=== PATIENT | female | born 1990 | race Caucasian/White ===

== ENCOUNTER 2019-05-21 01:36 | Observation (INO) | payer BC, OTHER ==
--- OUTSIDE RECORDS SUMMARY | 2019-05-21 01:39 | XMS REPORT ---
:1990 [facility] [address] [place] [address] Care Team Providers Name Role Phone Unavailable Unavailable Unavailable Problems This patient has no known problems. Allergies, Adverse Reactions, Alerts This patient has no known allergies or adverse reactions. Medications This patient has no known medications. Results Test Description Test Time Test Comments Text Results Atomic Results Result Comments US PELVIC complete CLINICAL INDICATION: R10.2 PELVIC AND (TRANSABDOMINAL) PERINEAL PAINTECHNIQUE:Real-time and doppler transabdominal ultrasound evaluation of the pelvis was performed on the Oonair.FINDINGS:Uterus: Measured 9.7 x 7 x 4.4 cm. No discrete uterine mass is seen.Endometrial stripe:8 mm.Right ovary: 2.8 x 2.3 cm appeared unremarkable.Left Ovary: 2.4 x 2.3 cm appeared unremarkable.Adnexa: Unremarkable. Bladder appeared unremarkable.IMPRESSION:Essentially unremarkable transabdominal ultrasound of the pelvis.
[2019-05-21 02:22] LABS: Urine Blood NEGATIVE (NEG); Urine Glucose NEGATIVE (NEG); Urine Protein NEGATIVE (NEG); Urine Specific Gravity >1.030 (1.005-1.030); Urine pH 6.5 (5.0-7.0)
[2019-05-21] MEDS ORDERED: ONDANSETRON 4 MG (ODT) TAB ONE (02:30)
[2019-05-21] MEDS ORDERED: KETOROLAC 30 MG/ML INJ ONE ×2 (02:30→14:57)
[2019-05-21 02:44] LABS: Urine Bacteria <20 /HPF (<20); Urine RBC <5 /HPF (NONE SEEN)
[2019-05-21] MEDS ORDERED: CEFOXITIN/SWI 1gm 1 GM/10 ML SYR ONE (02:53)
[2019-05-21] MEDS ORDERED: NA CHLORIDE 0.9% 1,000 ML ONE (02:53)
[2019-05-21] MEDS ORDERED: NA CHLORIDE 0.9% 100 ML IV ONE (02:53)
[2019-05-21] MEDS ORDERED: FENTANYL CITR 100 MCG/2 ML ONE ×2 (03:12→13:41)
[2019-05-21 03:41] LABS: ALT/SGPT 13 U/L (12-78); AST/SGOT 11 U/L (15-37); Albumin 3.6 g/dL (3.4-5.0); Alkaline Phosphatase 49 U/L (45-117); BUN Blood Urea Nitrogen 13 mg/dL (7-18); Bicarbonate 27 mmol/L (21-32); Bilirubin Direct < 0.1 mg/dL (0-0.2); Bilirubin Total 0.3 mg/dL (0.2-1.0); Glucose Level 78 mg/dL (74-106); Lipase 92 U/L (73-393); Potassium 3.9 mmol/L (3.5-5.1); Protein, Total 6.5 g/dL (6.4-8.2); Sodium Level 140 mmol/L (136-145)
[2019-05-21 03:54] LABS: Absolute Lymphocytes (CBC) 2.9 K/uL (0.7-4.9); Basophils % 0.9 % (0-1.3); Hematocrit 38.4 % (36.0-45.0); Lymphocytes % 34.6 % (15.3-44.8); MPV 7.5 fL (7.6-11.3); RBC Red Blood Cell Count 4.44 M/uL (3.86-4.86)
--- NOTE | 2019-05-21 05:06 | ER ---
Nurse's Notes [facility] Name: Alejandra Larueano Age: 28 yrs Sex: Female : 1990 Arrival Date: 05/21/2019 Time: 01:41 Bed 15 Private MD: Diagnosis: Abdominal and pelvic pain;Acute appendicitis with localized peritonitis Presentation: 05/21 01:55 Presenting complaint: Patient states: I am having this on and off abdominal pain rr5 started last . now it gets worst. It is like a sharp pain and pressure going to my vagina area. my abdomen is swollen and cannot tolerate anything. 01:55 Transition of care: patient was not received from another setting of care. Onset of rr5 symptoms was May 18, 2019. Risk Assessment: Do you want to hurt yourself or someone else? Patient reports no desire to harm self or others. Initial Sepsis Screen: Does the patient meet any 2 criteria? No. Patient's initial sepsis screen is negative. Does the patient have a suspected source of infection? No. Patient's initial sepsis screen is negative. Care prior to arrival: None. 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 - Coronavirus screen:: The patient has NOT traveled to [place] in the past 14 days. Proceed with normal triage process as indicated. - Social history:: Smoking status: unknown Patient/guardian denies using alcohol, street drugs. - Ebola Screening: : Patient negative for fever greater than or equal to 101.5 degrees Fahrenheit, and additional compatible Ebola Virus Disease symptoms Patient denies exposure to infectious person Patient denies travel to an Ebola-affected area in the 21 days before illness onset. Screenin:09 Abuse screen: Denies threats or abuse. Denies injuries from another. Nutritional rr5 screening: No deficits noted. Tuberculosis screening: No symptoms or risk factors identified. Fall Risk None identified. Total Cook Fall Scale indicates No Risk (0-24 pts). Assessment: 02:00 General: Appears in no apparent distress. uncomfortable, Behavior is calm, cooperative, rr5 appropriate for age. Pain: Complains of pain in abdomen Pain radiates to pelvis Pain currently is 7 out of 10 on a pain scale. Quality of pain is described as pressure, sharp, Pain began 2-3 days ago. Is intermittent. Neuro: Level of Consciousness is awake, alert, obeys commands, Oriented to person, place, time, situation, Appropriate for age. Cardiovascular: Capillary refill < 3 seconds Patient's skin is warm and dry. Respiratory: Airway is patent Respiratory effort is even, unlabored, Respiratory pattern is regular, symmetrical. GI: Abdomen is round Bowel sounds present X 4 quads. Abdomen has rebound tenderness X 4 quads. Guarding noted in right upper quadrant and left upper quadrant Reports lower abdominal pain, upper abdominal pain, intolerance of fluids, intolerance of food, nausea, vomiting. : No signs and/or symptoms were reported regarding the genitourinary system. EENT: Derm: Skin is intact, is healthy with good turgor, Skin temperature is warm. Musculoskeletal: Circulation, motion, and sensation intact. Capillary refill < 3 seconds. 02:55 Reassessment: Patient appears in no apparent distress at this time. No changes from rr5 previously documented assessment. Patient and/or family updated on plan of care and expected duration. Pain level reassessed. patient is for admission. ED provider explained the result of CT scan .patient agreed for the plan of care. 03:56 Reassessment: Patient appears in no apparent distress at this time. Patient is alert, rr5 oriented x 3, equal unlabored respirations, skin warm/dry/pink. Patient states feeling better. Patient states symptoms have improved. Vital Signs: 01:55 BP 121 / 76; Pulse 85; Resp 19; Temp 98.4; Pulse Ox 99% ; Weight 95.25 kg; Height 5 ft. rr5 4 in. (162.56 cm); Pain 7/10; 03:00 BP 139 / 75; Pulse 69; Resp 16; Pulse Ox 98% on R/A; Pain 7/10; rr5 04:00 BP 115 / 79; Pulse 65; Resp 15; Pulse Ox 98% ; Pain 7/10; rr5 05:00 BP 118 / 62; Pulse 75; Resp 19; Pulse Ox 99% on R/A; Pain 6/10; rr5 06:00 BP 101 / 73; Pulse 60; Resp 17; Temp 98.3; Pulse Ox 99% ; Pain 4/10; rr5 01:55 Body Mass Index 36.05 (95.25 kg, 162.56 cm) rr5 ED Course: 01:41 Patient arrived in ED. ag3 01:44 Jas Lira, RN is Primary Nurse. rr5 01:48 Awa Powell FNP-C is PHCP. snw 01:48 Deny Garza MD is Attending Physician. snw 02:00 Arm band placed on right wrist. rr5 02:04 Triage completed. rr5 02:09 Patient has correct armband on for positive identification. Bed in low position. Call rr5 light in reach. Pulse ox on. NIBP on. 03:10 Missed attempt(s): 20 gauge Bleeding controlled, band aid applied, catheter tip intact. oe 03:20 Missed attempt(s): 22 gauge in right forearm. Bleeding controlled, band aid applied, rr5 catheter tip intact. 03:30 Missed attempt(s): 24 gauge in left hand. Bleeding controlled, band aid applied, rr5 catheter tip intact. 03:41 Initial lab(s) drawn, by me, sent to lab. Inserted saline lock: 20 gauge in right bb antecubital area, using aseptic technique. Blood collected. 05:04 Ryan Wasihngton MD is Hospitalizing Provider. kdr 06:00 No provider procedures requiring assistance completed. Patient admitted, IV remains in rr5 place. intact, No redness/swelling at site. Administered Medications: 02:31 Drug: TORadol 60 mg Route: IM; Site: right gluteus; rr5 02:50 Follow up: Response: No adverse reaction; No change in condition; Pain is unchanged, rr5 physician notified 02:31 Drug: Zofran 4 mg Route: PO; rr5 03:30 Follow up: Response: No adverse reaction; Marked relief of symptoms rr5 03:44 Drug: fentaNYL (PF) 50 mcg {Note: rass 0.} Route: IVP; Site: right antecubital; rr5 04:30 Follow up: Response: No adverse reaction; Pain is decreased; RASS: Alert and Calm (0) rr5 03:45 Drug: NS 0.9% 1000 ml Route: IV; Rate: 1 bolus; Site: right antecubital; rr5 05:00 Follow up: Response: No adverse reaction; IV Status: Completed infusion; IV Intake: rr5 1000ml 03:46 Dru grams of (Mefoxin 1 grams, NS 0.9% 50 ml) Route: IVPB; Infused Over: 30 mins; rr5 Site: right antecubital; 04:15 Follow up: Response: No adverse reaction; IV Status: Completed infusion; IV Intake: [id number] 05:04 Drug: fentaNYL (PF) 50 mcg {Note: rass 0.} Route: IVP; Site: right antecubital; rr5 06:00 Follow up: Response: No adverse reaction; Pain is decreased; RASS: Alert and Calm (0) rr5 Intake: 04:15 IV: 50ml; Total: 50ml. rr5 05:00 IV: 1000ml; Total: 1050ml. rr5 Outcome: 05:05 Decision to Hospitalize by Provider. kdr 06:00 Admitted to Med/surg accompanied by tech, via stretcher, room 231, with chart, Report rr5 called to [place] 06:00 Condition: stable 06:00 Instructed on the need for admit. 06:18 Patient left the ED. rr5 Signatures: Deny Garza MD MD kdr Therrien, Shelly, HOIST OPERATOR-C HOIST OPERATOR-Csnw Nina Roberts, RN RN bb Rajat Orozco Alice 3 Jas Lira, RN RN rr5 Corrections: (The following items were deleted from the chart) 03:35 03:33 Missed attempt(s): 20 gauge Bleeding controlled, band aid applied, catheter tip oe intact. oe
--- NOTE | 2019-05-21 05:06 | EDPHYS ---
Physician Documentation [facility] Name: Alejandra Laureano Age: 28 yrs Sex: Female : 1990 Arrival Date: 05/21/2019 Time: 01:41 Bed 15 Private MD: ED Physician Deny Garza HPI: 05/21 02:40 This 28 yrs old Female presents to ER via Ambulatory with complaints of snw Abdominal Pain. 02:40 The patient presents with abdominal pain that is diffuse, abdominal distention in the snw upper abdomen. Onset: The symptoms/episode began/occurred gradually, 2 year(s) ago, and became worse 3 day(s) ago, and became persistent. The symptoms do not radiate. Associated signs and symptoms: Pertinent positives: nausea and vomiting. The symptoms are described as constant. Severity of pain: At its worst the pain was severe. The patient has experienced similar episodes in the past, chronically. 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 - Coronavirus screen:: The patient has NOT traveled to [place] in the past 14 days. Proceed with normal triage process as indicated. - Social history:: Smoking status: unknown Patient/guardian denies using alcohol, street drugs. - Ebola Screening: : Patient negative for fever greater than or equal to 101.5 degrees Fahrenheit, and additional compatible Ebola Virus Disease symptoms Patient denies exposure to infectious person Patient denies travel to an Ebola-affected area in the 21 days before illness onset. ROS: 02:39 Constitutional: Negative for fever, chills, and weight loss, Eyes: Negative for injury, snw pain, redness, and discharge, ENT: Negative for injury, pain, and discharge, Neck: Negative for injury, pain, and swelling, Cardiovascular: Negative for chest pain, palpitations, and edema, Respiratory: Negative for shortness of breath, cough, wheezing, and pleuritic chest pain, Back: Negative for injury and pain, : Negative for injury, bleeding, discharge, and swelling, MS/Extremity: Negative for injury and deformity, Skin: Negative for injury, rash, and discoloration, Neuro: Negative for headache, weakness, numbness, tingling, and seizure. 02:39 Abdomen/GI: Positive for abdominal pain, nausea and vomiting, abdominal distension, of the from upper abdomen down to pelvis. Exam: 02:38 Constitutional: This is a well developed, well nourished patient who is awake, alert, snw and in no acute distress. Head/Face: Normocephalic, atraumatic. Eyes: Pupils equal round and reactive to light, extra-ocular motions intact. Lids and lashes normal. Conjunctiva and sclera are non-icteric and not injected. Cornea within normal limits. Periorbital areas with no swelling, redness, or edema. ENT: Nares patent. No nasal discharge, no septal abnormalities noted. Tympanic membranes are normal and external auditory canals are clear. Oropharynx with no redness, swelling, or masses, exudates, or evidence of obstruction, uvula midline. Mucous membranes moist. Neck: Trachea midline, no thyromegaly or masses palpated, and no cervical lymphadenopathy. Supple, full range of motion without nuchal rigidity, or vertebral point tenderness. No Meningismus. Chest/axilla: Normal chest wall appearance and motion. Nontender with no deformity. No lesions are appreciated. Cardiovascular: Regular rate and rhythm with a normal S1 and S2. No gallops, murmurs, or rubs. Normal PMI, no JVD. No pulse deficits. Respiratory: Lungs have equal breath sounds bilaterally, clear to auscultation and percussion. No rales, rhonchi or wheezes noted. No increased work of breathing, no retractions or nasal flaring. Back: No spinal tenderness. No costovertebral tenderness. Full range of motion. Skin: Warm, dry with normal turgor. Normal color with no rashes, no lesions, and no evidence of cellulitis. MS/ Extremity: Pulses equal, no cyanosis. Neurovascular intact. Full, normal range of motion. Neuro: Awake and alert, GCS 15, oriented to person, place, time, and situation. Cranial nerves II-XII grossly intact. Motor strength 5/5 in all extremities. Sensory grossly intact. Cerebellar exam normal. Normal gait. Psych: Awake, alert, with orientation to person, place and time. Behavior, mood, and affect are within normal limits. 02:38 Abdomen/GI: Inspection: distension, that is mild, in the right upper quadrant and left upper quadrant, Bowel sounds: normal, Palpation: moderate abdominal tenderness, in the suprapubic area, right lower quadrant and left lower quadrant. Vital Signs: 01:55 BP 121 / 76; Pulse 85; Resp 19; Temp 98.4; Pulse Ox 99% ; Weight 95.25 kg; Height 5 ft. rr5 4 in. (162.56 cm); Pain 7/10; 03:00 BP 139 / 75; Pulse 69; Resp 16; Pulse Ox 98% on R/A; Pain 7/10; rr5 04:00 BP 115 / 79; Pulse 65; Resp 15; Pulse Ox 98% ; Pain 7/10; rr5 05:00 BP 118 / 62; Pulse 75; Resp 19; Pulse Ox 99% on R/A; Pain 6/10; rr5 06:00 BP 101 / 73; Pulse 60; Resp 17; Temp 98.3; Pulse Ox 99% ; Pain 4/10; rr5 01:55 Body Mass Index 36.05 (95.25 kg, 162.56 cm) rr5 MDM: 01:53 Patient medically screened. snw 02:56 Data reviewed: vital signs, nurses notes. Data interpreted: Pulse oximetry: on room air snw is 99 %. Interpretation: normal. Counseling: I had a detailed discussion with the patient and/or guardian regarding: the historical points, exam findings, and any diagnostic results supporting the discharge/admit diagnosis, lab results, radiology results, the need for further work-up and treatment in the hospital. Physician consultation: Deny Garza MD would like consultation with Dr. Dr. Washington post lab results. Transition of care: After a detail discussion of the patient's case, care is transferred to Deny Garza MD. 05/21 01:43 Order name: Urine Culture snw 05/21 01:43 Order name: Urine Microscopic Only snw 05/21 02:13 Order name: Urine Dipstick--Ancillary (enter results) ds4 05/21 02:23 Order name: Urine Dipstick-Ancillary; Complete Time: 02:26 EDMS 05/21 02:44 Order name: Urine Microscopic Only; Complete Time: 02:47 EDMS 05/21 02:47 Order name: Basic Metabolic Panel snw 05/21 01:56 Order name: CT Abd/Pelvis - Without Contrast snw 05/21 02:47 Order name: CBC with Diff snw 05/21 02:47 Order name: Hepatic Function snw 05/21 02:47 Order name: Lipase snw 05/21 03:41 Order name: Basic Metabolic Panel; Complete Time: 04:48 EDMS 05/21 03:41 Order name: Liver (Hepatic) Function; Complete Time: 04:48 EDMS 05/21 03:42 Order name: Lipase; Complete Time: 04:48 EDMS 05/21 03:56 Order name: CBC with Automated Diff; Complete Time: 04:48 EDMS 05/21 01:43 Order name: Urine Dipstick-Ancillary (obtain specimen); Complete Time: 02:10 snw 05/21 02:47 Order name: Labs collected and sent; Complete Time: 02:55 snw Administered Medications: 02:31 Drug: TORadol 60 mg Route: IM; Site: right gluteus; rr5 02:50 Follow up: Response: No adverse reaction; No change in condition; Pain is unchanged, rr5 physician notified 02:31 Drug: Zofran 4 mg Route: PO; rr5 03:30 Follow up: Response: No adverse reaction; Marked relief of symptoms rr5 03:44 Drug: fentaNYL (PF) 50 mcg {Note: rass 0.} Route: IVP; Site: right antecubital; rr5 04:30 Follow up: Response: No adverse reaction; Pain is decreased; RASS: Alert and Calm (0) rr5 03:45 Drug: NS 0.9% 1000 ml Route: IV; Rate: 1 bolus; Site: right antecubital; rr5 05:00 Follow up: Response: No adverse reaction; IV Status: Completed infusion; IV Intake: rr5 1000ml 03:46 Dru grams of (Mefoxin 1 grams, NS 0.9% 50 ml) Route: IVPB; Infused Over: 30 mins; rr5 Site: right antecubital; 04:15 Follow up: Response: No adverse reaction; IV Status: Completed infusion; IV Intake: [id number] 05:04 Drug: fentaNYL (PF) 50 mcg {Note: rass 0.} Route: IVP; Site: right antecubital; rr5 06:00 Follow up: Response: No adverse reaction; Pain is decreased; RASS: Alert and Calm (0) rr5 Disposition: 05:04 Co-signature as Attending Physician, Deny Garza MD I agree with the assessment and kdr plan of care. Disposition: 05/21/19 05:05 Hospitalization ordered by Ryan Washington for Inpatient Admission. Preliminary diagnosis are Abdominal and pelvic pain, Acute appendicitis with localized peritonitis. - Bed requested for Telemetry/MedSurg (Inpatient). - Status is Inpatient Admission. rr5 - Condition is Fair. - Problem is new. - Symptoms are unchanged. Signatures: Dispatcher [employer] EDMS Aiyana Hopper RN RN Deny Burger MD MD [facility] Awa Powell FNP-C VP ANCILLARY-Csnw Jas Lira RN RN rr5 Corrections: (The following items were deleted from the chart) 01:55 01:43 Urine Test ordered. snw rr5 05:24 05:05 Hospitalization Ordered by Ryan Washington MD for Inpatient Admission. Preliminary diagnosis is Abdominal and pelvic pain; Acute appendicitis with localized peritonitis. Bed requested for Telemetry/MedSurg (Inpatient). Status is Inpatient Admission. Condition is Fair. Problem is new. Symptoms are unchanged. kdr 06:18 05:24 05/21/2019 05:05 Hospitalization Ordered by Ryan Washington MD for Inpatient rr5 Admission. Preliminary diagnosis is Abdominal and pelvic pain; Acute appendicitis with localized peritonitis. Bed requested for Telemetry/MedSurg (Inpatient). Status is Inpatient Admission. Condition is Fair. Problem is new. Symptoms are unchanged. mw
[2019-05-21] MEDS ORDERED: ACETAMINOPHEN 500 MG TAB PO PRN (05:09)
[2019-05-21] MEDS ORDERED: MORPHINE 4 MG/ML SYR IV PRN (05:09)
[2019-05-21 06:21] VITALS: BMI 35.1
[2019-05-21] MEDS: D5 0.45 NS 1,000 ML IV SCH ×2 (08:02→14:00)
[2019-05-21] MEDS ORDERED: CEFOXITIN SODIUM 1 GM/VIAL IVPB SCH (12:00)
[2019-05-21] MEDS: CEFOXITIN/SWI 1gm 1 GM/10 ML SYR IVP SCH ×3 (12:20→23:23)
[2019-05-21] MEDS ORDERED: Ringers Lactate 1,000 ML IV ONE (13:32)
[2019-05-21] MEDS ORDERED: SUCCINYLCHOLINE 20 MG/ML (10 ML) IV ONE (13:37)
--- NOTE | 2019-05-21 13:38 | P.HP ---
Date of Service: 05/21/19 PC: This 28-year-old female presents emergency room with severe abdominal pain for diagnosis and treatment. HPC: Patient has been having intermittent bouts of crampy abdominal pain over the last few months. However the of the night the pain became extremely severe. Was unrelenting. Began to localize in the right lower quadrant. No nausea or vomiting. PMH: Negative PSHx: Previous hysterectomy, tummy tuck, augmentation SOC: No known allergies SYS REVIEW: No cough, wheeze, shortness of breath. No chest pain or palpitations. Denies any urinary complaints O/E wake alert uncomfortable HEENT: Nonicteric Chest: Chest movement equal bilaterally ABD: Tender with guarding in the right lower quadrant LOCO: Intact DATA: CT scan suggests early appendicitis this confirms our clinical impression IMPRESSION: Acute abdomen with acute appendicitis PLAN: I will take to the operating room for laparoscopic possible open appendectomy. The risks of this procedure have been discussed. The possibility of bleeding, infection, injury to bowel blood vessels and surrounding structure has been described. The possible need for an open and/or further surgeries and procedures was discussed. She understands and wants us to proceed.
[2019-05-21] MEDS ORDERED: BUPIVACAINE 0.5% PF 10 ML VIAL ONE ×2 (13:39→13:40)
[2019-05-21] MEDS ORDERED: propofoL 200 MG/20 ML VIAL IV ONE (13:41)
[2019-05-21] MEDS ORDERED: MIDAZOLAM HCL 2 MG/2 ML INJ ONE (13:41)
[2019-05-21] MEDS ORDERED: ROCURONIUM 50 MG/5 ML VIAL IV ONE (13:42)
[2019-05-21] MEDS ORDERED: NEOSTIGMINE 1 MG/ML -5 ML ONE (14:31)
[2019-05-21] MEDS ORDERED: GLYCOPYRROLATE 0.2 MG/ML SYR ONE (14:32)
--- NOTE | 2019-05-21 14:47 | P.OP ---
Preoperative diagnosis: Acute abdomen with appendicitis Postoperative diagnosis: The same Primary procedure: Laparoscopic appendectomy Anesthesia: General Estimated blood loss: Less than 10 cc Specimen: 1 gallbladder and contents Operative Technique: The patient brought the operating room placed supine on the table. After the induction of adequate general endotracheal anesthesia, the area of the abdomen was prepped with a DuraPrep solution, a John catheter was inserted, and she this was draped in usual aseptic manner. A subumbilical incision was made. This brought down through her old abdominoplasty scar. The Visiport was now used to enter the peritoneal cavity and created pneumoperitoneum to approximately 12 mm of mercury. Under direct vision a 5 mm trocar was placed in the lower midline. We now looked for the cecum. It was almost in the mid abdomen. The patient was placed in reverse Trendelenburg and rolled to the left. We could see the cecum. There was inflammatory process around this. This was traced out found to be the appendix which was almost in a retrocecal area and had actually appear to be almost twisted on itself as well. The base of the appendix was identified. The junction with the cecum was noted. The linear Stapler was placed across the base of the appendix. This favoring the cecum and it was fired. The mesentery of the appendix was now dissected out. The linear Stapler was placed across this with a vascular reload. The EnSeal was fired. Hemostasis some having been assured and the specimen detached, it was now placed into an Endo-Catch. It was brought out through the umbilical trocar site. We returned our trocars into the intra peritoneum. The pneumoperitoneum was reestablished. We checked the right side of the abdomen and irrigated extensively to ensure adequate hemostasis. At this point we also looked at the small bowel. It was run from the ligament of Treitz down to the ileocecal bowel. There was no evidence of any adhesions to the pelvic floor with the patient had a previous hysterectomy. There is some scar of the appendices epiploica to the anterior abdominal wall with a come off the sigmoid colon. The patient has also had a hysterectomy. The right ovary was visualized with a broad base in the right side of the true pelvis. It did not appear to be able to force on itself. At this point the abdomen was then skin inspected to ensure adequate hemostasis. She was returned to the North neutral position on the OR table. The umbilical trocar site was approximated using the Endo Close an absorbable suture. The pneumoperitoneum was now collapsed, and marcos applied to the skin. At the end of procedure she was stable when sent to the recovery room. Needle sponge instrument count were correct. The John catheter was removed and sterile dressings were applied. Complications: None Transferred to: Recovery Room Condition: Good
[2019-05-21] MEDS: FENTANYL CITR 100 MCG/2 ML ONE ×2 (14:55→15:00)
[2019-05-21] MEDS ORDERED: HYDROCODONE/APAP 7.5/325 MG TAB PO PRN (14:56)
[2019-05-21] MEDS: MORPHINE 4 MG/ML SYR ONE ×2 (15:09→15:16)
[2019-05-21] MEDS: Ringers Lactate 1,000 ML IV ONE ×2 (15:11→15:20)
[2019-05-21] MEDS ORDERED: MEPERIDINE HCL 25 MG/ML SYR ONE ×3 (15:21→15:31)
[2019-05-21] MEDS: MORPHINE 4 MG/ML SYR IV PRN (19:44)
[2019-05-22] MEDS: CEFOXITIN/SWI 1gm 1 GM/10 ML SYR IVP SCH ×2 (05:38→12:24)
[2019-05-22] MEDS: MORPHINE 4 MG/ML SYR IV PRN (08:39)
[2019-05-22] MEDS: ONDANSETRON 4 MG/2 ML VIAL IV PRN ×2 (08:41→12:24)
--- NOTE | 2019-05-22 10:43 | RAD REPORT ---
EXAM DESCRIPTION: CT - Abdomen Pelvis Wo Contrast - 05/21/2019 5:59 am CLINICAL HISTORY: The patient is 28 years old and is Female; ABD PAIN TECHNIQUE: Axial computed tomography images of the abdomen and pelvis without intravenous contrast. Sagittal and coronal reformatted images were created and reviewed. This CT exam was performed usi ng one or more of the following dose reduction techniques: automated exposure control, adjustment o f the mA and/or kV according to patient size, and/or use of iterative reconstruction technique. COMPARISON: No relevant prior studies available. FINDINGS: LUNG BASES: Unremarkable. No mass. No consolidation. ABDOMEN: LIVER: Homogeneous without focal mass. GALLBLADDER AND BILE DUCTS: No calcified stones. No ductal dilation. PANCREAS: Unremarkable. No ductal dilation. SPLEEN: Unremarkable. ADRENALS: Unremarkable. No mass. KIDNEYS AND URETERS: No obstructing stones. No hydronephrosis. No perinephric fluid. STOMACH AND BOWEL: The stomach is decompressed. The small bowel is normal in caliber. A few of t he loops of small bowel are fluid-filled. Stool is present throughout colon. There is no mucosal thic kening or evidence of bowel obstruction. PELVIS: APPENDIX: The appendix is fluid-filled measuring up to 0.9 cm. No significant surrounding inflam mation is seen. BLADDER: The bladder is not well distended. REPRODUCTIVE: The patient is status post hysterectomy. ABDOMEN and PELVIS: INTRAPERITONEAL SPACE: Unremarkable. No free air. No significant fluid collection. BONES/JOINTS: No acute fracture. SOFT TISSUES: Bilateral breast implants are partially visualized. VASCULATURE: Unremarkable. No abdominal aortic aneurysm. LYMPH NODES: Unremarkable. No enlarged lymph nodes. IMPRESSION: Fluid-filled slightly dilated appendix. No significant surrounding inflammation is seen. However, an early acute appendicitis is not completely excluded. Electronically signed by: Cheyanne Michaud MD 05/21/2019 2:41 AM FLAT LOCK MACHINE OPERATOR Due to temporary technical issues with the PACS/Fluency reporting system, reports are being signed by the in house radiologist as a courtesy to ensure prompt reporting. The interpreting radiologist is f donally responsible for the content of the report.
--- NOTE | 2019-05-22 14:02 | P.PN ---
Date of Service: 05/22/19 S: Patient states her pain is gone. However she is having nausea today and actually threw up. No pain or discomfort but after she ate she vomited. O: Vital signs are stable, incisions are clean, patient looks well A: Patient had nausea earlier. Has received some Zofran. I believe this is sensitivity to the pain medicine. P: Was the patient is able tolerate liquids acute thin down, she will be discharged. In the meantime she is going to take a nap, ambulate, and hope will be ready for discharge dismissed p.m..
[2019-05-22 16:54] VITALS: BP 137/60; TEMP 98.4
[2019-05-22 19:46] VITALS: O2SAT 100
== END 2019-05-22 18:39 | disposition home or self-care (01) ==
LOC: ER 01:36 → ERHOLD 05:40 → INTOOBSV 05:40 → 2ND 06:04
PROVIDERS: ADMIT Surgery; ATTEND Surgery
PROC: 0DTJ4ZZ Resection of Appendix, Percutaneous Endoscopic Approach (ICD-10-PCS; principal; 2019-05-21 14:00)
DX: K35.80 Unspecified acute appendicitis (principal)
CPT/HCPCS: 96365; 96361; 87088; 85025; 87086; 80048; 36415; 80076; 88304; 83690; 74176; 96375; 96372; 99285; 44970; J2704; J0330; J2250; J3010 ×3; J2175 ×3; J2710; J7799; J7120 ×2; J7030; J2405 ×2; G0378 ×3; 81003; 81015; J0694

== ENCOUNTER 2019-05-28 20:06 | Emergency (ER) | payer BC ==
--- OUTSIDE RECORDS SUMMARY | 2019-05-28 20:08 | XMS REPORT ---
:1990 [facility] Address [address] [place] [address] Care Team Providers Name Role Phone Unavailable [...] of the pelvis was performed on the [employer].FINDINGS:Uterus: Measured 9.7 x 7 x 4.4 cm. No discrete uterine mass is seen.Endometrial stripe:8 mm.Right ovary: 2.8 x 2.3 cm appeared unremarkable.Left Ovary: 2.4 x 2.3 cm appeared unremarkable.Adnexa: Unremarkable. Bladder appeared unremarkable.IMPRESSION:Essentially unremarkable transabdominal ultrasound of the pelvis.
[2019-05-28] MEDS ORDERED: SIMETHICONE 80 MG TAB ONE (21:04)
[2019-05-28] MEDS ORDERED: NA CHLORIDE 0.9% 1,000 ML ONE (21:32)
[2019-05-28 21:53] LABS: Absolute Lymphocytes (CBC) 2.2 K/uL (0.7-4.9); Hematocrit 37.6 % (36.0-45.0); Lymphocytes % 29.6 % (15.3-44.8); MPV 7.5 fL (7.6-11.3)
[2019-05-28 22:07] LABS: BUN Blood Urea Nitrogen 12 mg/dL (7-18); Bicarbonate 26 mmol/L (21-32); Glucose Level 85 mg/dL (74-106); Potassium 3.7 mmol/L (3.5-5.1); Sodium Level 139 mmol/L (136-145)
--- NOTE | 2019-05-28 22:14 | RAD REPORT ---
EXAM DESCRIPTION: Malissa Single View05/28/2019 9:50 pm CLINICAL HISTORY: Abdominal pain COMPARISON: none FINDINGS: The lungs appear clear of acute infiltrate. The heart is normal size IMPRESSION: No acute abnormalities displayed
[2019-05-28 22:29] LABS: Urine Amorphous Sediment 2+ /HPF (NONE SEEN); Urine Bacteria >50 /HPF (<20); Urine Culture Reflex Order NOT NEEDED; Urine Mucus 1+ /HPF (NONE SEEN); Urine RBC NONE SEEN /HPF (NONE SEEN)
[2019-05-28] MEDS ORDERED: FENTANYL CITR 100 MCG/2 ML ONE (22:37)
[2019-05-28] MEDS ORDERED: CEFTRIAXONE/SWI 1gm 1 GM/10 ML SYR ONE (22:45)
--- NOTE | 2019-05-29 01:37 | EDPHYS ---
Physician Documentation [facility] Jeff Name: Alejandra Laureano Age: 28 yrs Sex: Female : 1990 Arrival Date: 05/28/2019 Time: 20:10 Bed 28 Private MD: ED Physician Danny Meier HPI: 05/28 23:31 This 28 yrs old Female presents to ER via Ambulatory with complaints of Post snw Surgical Pain. 23:31 The patient presents with abdominal pain in the lower abdomen. Onset: The snw symptoms/episode began/occurred acutely. The symptoms do not radiate. Associated signs and symptoms: Pertinent positives: chills, dysuria. The symptoms are described as crampy, sharp. Severity of pain: At its worst the pain was moderate severe. It is unknown whether or not the patient has had similar symptoms in the past. as noted, s/p appy. 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 - Coronavirus screen:: The patient has NOT traveled to [place] in the past 14 days. The patient has NOT had contact with known/suspected case of Coronavirus?. - Social history:: Smoking status: Patient denies any tobacco usage or history of. - Ebola Screening: : Patient negative for fever greater than or equal to 101.5 degrees Fahrenheit, and additional compatible Ebola Virus Disease symptoms Patient denies exposure to infectious person Patient denies travel to an Ebola-affected area in the 21 days before illness onset No symptoms or risks identified at this time. ROS: 23:30 Constitutional: Negative for fever, chills, and weight loss, Eyes: Negative for injury, snw pain, redness, and discharge, ENT: Negative for injury, pain, and discharge, Neck: Negative for injury, pain, and swelling, Cardiovascular: Negative for chest pain, palpitations, and edema, Respiratory: Negative for shortness of breath, cough, wheezing, and pleuritic chest pain, Back: Negative for injury and pain, : Negative for injury, bleeding, discharge, and swelling, MS/Extremity: Negative for injury and deformity, Skin: Negative for injury, rash, and discoloration, Neuro: Negative for headache, weakness, numbness, tingling, and seizure, Psych: Negative for depression, anxiety, suicide ideation, homicidal ideation, and hallucinations. 23:30 Abdomen/GI: Positive for abdominal pain, abdominal cramps. Exam: 23:27 Constitutional: This is a well developed, well nourished patient who is awake, alert, snw and in no acute distress. Head/Face: Normocephalic, atraumatic. Eyes: Pupils equal round and reactive to light, extra-ocular motions intact. Lids and lashes normal. Conjunctiva and sclera are non-icteric and not injected. Cornea within normal limits. Periorbital areas with no swelling, redness, or edema. ENT: Nares patent. No nasal discharge, no septal abnormalities noted. Tympanic membranes are normal and external auditory canals are clear. Oropharynx with no redness, swelling, or masses, exudates, or evidence of obstruction, uvula midline. Mucous membranes moist. Neck: Trachea midline, no thyromegaly or masses palpated, and no cervical lymphadenopathy. Supple, full range of motion without nuchal rigidity, or vertebral point tenderness. No Meningismus. Chest/axilla: Normal chest wall appearance and motion. Nontender with no deformity. No lesions are appreciated. Cardiovascular: Regular rate and rhythm with a normal S1 and S2. No gallops, murmurs, or rubs. Normal PMI, no JVD. No pulse deficits. Respiratory: Lungs have equal breath sounds bilaterally, clear to auscultation and percussion. No rales, rhonchi or wheezes noted. No increased work of breathing, no retractions or nasal flaring. Back: No spinal tenderness. No costovertebral tenderness. Full range of motion. Skin: Warm, dry with normal turgor. Normal color with no rashes, no lesions, and no evidence of cellulitis. MS/ Extremity: Pulses equal, no cyanosis. Neurovascular intact. Full, normal range of motion. Neuro: Awake and alert, GCS 15, oriented to person, place, time, and situation. Cranial nerves II-XII grossly intact. Motor strength 5/5 in all extremities. Sensory grossly intact. Cerebellar exam normal. Normal gait. Psych: Awake, alert, with orientation to person, place and time. Behavior, mood, and affect are within normal limits. 23:27 Abdomen/GI: Inspection: bruising, minimal, fresh incisions with sparse marcos, wound edges of three incisions well approximated, no erythema, mild tenderness to lower abdomen. No bleeding., Bowel sounds: normal, Palpation: mild abdominal tenderness, in the suprapubic area, right lower quadrant and left lower quadrant. Vital Signs: 20:23 BP 138 / 98; Pulse 94; Resp 16 S; Temp 98.6(O); Pulse Ox 100% on R/A; Weight 95.25 kg ca1 (R); Height 5 ft. 5 in. (165.10 cm) (R); Pain 7/10; 21:47 BP 135 / 87; Pulse 90; Resp 18 S; Pulse Ox 95% on R/A; jd3 22:39 BP 117 / 67; Pulse 81; Resp 16; Temp 98.3(O); Pulse Ox 100% ; lt1 23:30 BP 115 / 73; Pulse 79; Resp 18; Pulse Ox 98% on R/A; wh 20:23 Body Mass Index 34.95 (95.25 kg, 165.10 cm) ca1 MDM: 20:58 Patient medically screened. snw 23:30 Data reviewed: vital signs, nurses notes. Data interpreted: Pulse oximetry: on room air snw is 100 %. Interpretation: normal. Counseling: I had a detailed discussion with the patient and/or guardian regarding: the historical points, exam findings, and any diagnostic results supporting the discharge/admit diagnosis, lab results, the need for outpatient follow up, to return to the emergency department if symptoms worsen or persist or if there are any questions or concerns that arise at home. Special discussion: Based on the patient's Hx, exam, and Dx evaluation, there is no indication for emergent surgery or inpatient Tx. It is understood by the patient/guardian that if the Sx's persist or worsen they need to return immediately for re-evaluation. Based on the history and exam findings, there is no indication for further emergent testing or inpatient evaluation. I discussed with the patient/guardian the need to see the general surgeon for further evaluation of the symptoms. I discussed with the patient/guardian the need to see the primary care provider for further evaluation of the symptoms. 02/23 21:13 Order name: Urine Dipstick-Ancillary (obtain specimen); Complete Time: 21:25 snw 05/28 21:32 Order name: Urine Test (obtain specimen); Complete Time: 21:41 mw2 Administered Medications: 21:02 Drug: Simethicone 240 mg Route: PO; jd3 23:50 Follow up: Response: No adverse reaction 21:47 Drug: NS 0.9% 1000 ml Route: IV; Rate: 1 bolus; Site: left antecubital; jd3 23:49 Follow up: Response: No adverse reaction; IV Status: Completed infusion 22:35 Drug: fentaNYL (PF) 25 mcg Route: IVP; Site: left antecubital; 23:49 Follow up: Response: No adverse reaction; Pain is decreased; RASS: Alert and Calm (0) 22:44 Drug: Rocephin 1 grams Route: IV; Rate: calculated rate; Site: left antecubital; 23:49 Follow up: Response: No adverse reaction; IV Status: Completed infusion Disposition: 05/29 04:01 Co-signature as Attending Physician, Danny Meier MD. pkl Disposition: 05/28/19 23:10 Discharged to Home. Impression: Urinary tract infection, site not specified, Other abdominal pain. - Condition is Stable. - Discharge Instructions: Urinary Tract Infection, Adult, Rehydration, Adult. - Prescriptions for Augmentin 875- 125 mg Oral Tablet - take 1 tablet by ORAL route every 12 hours for 10 days; 20 tablet. - Work release form, Medication Reconciliation Form, Thank You Letter, Antibiotic Education, Prescription Opioid Use form. - Follow up: Emergency Department; When: As needed; Reason: Worsening of condition. Follow up: Private Physician; When: 2 - 3 days; Reason: Recheck today's complaints, Continuance of care, Re-evaluation by your physician. Follow up: Ryan Washington MD; When: 2 - 3 days; Reason: Recheck today's complaints, Continuance of care. - Problem is new. - Symptoms are unchanged. - Notes: GasX as needed for sharp abdominal pain. Signatures: Danny Meier MD MD pkl Awa Powell, FURNACE LOADER-C FURNACE LOADER-Csnw Rayna Vera Eduar Hooper RN RN jClaudette ShaikhAviva mw2 Alisa Trivedi RN RN ca1 Corrections: (The following items were deleted from the chart) 05/28 23:50 23:10 05/28/2019 23:10 Discharged to Home. Impression: Urinary tract infection, site wh not specified; Other abdominal pain. Condition is Stable. Forms are Medication Reconciliation Form, Thank You Letter, Antibiotic Education, Prescription Opioid Use. Follow up: Emergency Department; When: As needed; Reason: Worsening of condition. Follow up: Private Physician; When: 2 - 3 days; Reason: Recheck today's complaints, Continuance of care, Re-evaluation by your physician. Follow up: Ryan Washington; When: 2 - 3 days; Reason: Recheck today's complaints, Continuance of care. Problem is new. Symptoms are unchanged. snw
--- NOTE | 2019-05-29 01:38 | ER ---
Nurse's Notes [facility] Jeff Name: Alejandra Laureano Age: 28 yrs Sex: Female : 1990 Arrival Date: 05/28/2019 Time: 20:10 Bed 28 Private MD: Diagnosis: Urinary tract infection, site not specified;Other abdominal pain Presentation: 05/28 20:19 Presenting complaint: Patient states: Appendectomy on Wednesday by Dr. Washington. Discharged ca1 from the hospital Wednesday. Yesterday, started having incision pains. Today, starting to have R sided pains with the incision pains. Transition of care: patient was not received from another setting of care. Onset of symptoms. Onset of symptoms was May 28, 2019. Risk Assessment: Do you want to hurt yourself or someone else? Patient reports no desire to harm self or others. Initial Sepsis Screen: Does the patient meet any 2 criteria? No. Patient's initial sepsis screen is negative. Does the patient have a suspected source of infection? No. Patient's initial sepsis screen is negative. Care prior to arrival: None. 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 - Coronavirus screen:: The patient has NOT traveled to [place] in the past 14 days. The patient has NOT had contact with known/suspected case of Coronavirus?. - Social history:: Smoking status: Patient denies any tobacco usage or history of. - Ebola Screening: : Patient negative for fever greater than or equal to 101.5 degrees Fahrenheit, and additional compatible Ebola Virus Disease symptoms Patient denies exposure to infectious person Patient denies travel to an Ebola-affected area in the 21 days before illness onset No symptoms or risks identified at this time. Screenin:37 Abuse screen: Denies threats or abuse. Nutritional screening: No deficits noted. jd3 Tuberculosis screening: No symptoms or risk factors identified. Fall Risk Ambulatory Aid- None/Bed Rest/Nurse Assist (0 pts). Gait- Normal/Bed Rest/Wheelchair (0 pts) Mental Status- Oriented to own ability (0 pts). Total Cook Fall Scale indicates No Risk (0-24 pts). Assessment: 20:32 General: Appears in no apparent distress. uncomfortable, Behavior is calm, cooperative, jd3 appropriate for age, anxious. Pain: Complains of pain in suprapubic area, right upper quadrant and right lower quadrant Quality of pain is described as sharp, tender. Neuro: Level of Consciousness is awake, alert, obeys commands, Oriented to person, place, time, situation. Cardiovascular: Denies chest pain, Capillary refill < 3 seconds Patient's skin is warm and dry. Respiratory: Airway is patent Respiratory effort is even, unlabored, Respiratory pattern is regular, symmetrical, Denies cough, shortness of breath. GI: Abdomen is round non-distended, Bowel sounds present X 4 quads. Abd is soft X 4 quads Abdomen is tender to palpation in suprapubic area, right upper quadrant and right lower quadrant Guarding noted in suprapubic area, right upper quadrant and right lower quadrant Reports lower abdominal pain, Patient currently denies diarrhea, vomiting. : No signs and/or symptoms were reported regarding the genitourinary system. Denies burning with urination, urinary frequency. EENT: No signs and/or symptoms were reported regarding the EENT system. Derm: Skin is intact, Skin is dry, Skin is normal, Skin temperature is warm Wound noted suprapubic area Wound is three surgical sights noted from recent laproscopic surgery. marcos in place, no redness, bleeding or swelling noted. pt reports tenderness around surgical sights. Musculoskeletal: Circulation, motion, and sensation intact. Range of motion: intact in all extremities. 21:47 Reassessment: Patient appears in no apparent distress at this time. No changes from jd3 previously documented assessment. Patient and/or family updated on plan of care and expected duration. Pain level reassessed. Patient is alert, oriented x 3, equal unlabored respirations, skin warm/dry/pink. 23:10 Reassessment: Patient appears in no apparent distress at this time. No changes from wh previously documented assessment. Patient and/or family updated on plan of care and expected duration. Pain level reassessed. Patient is alert, oriented x 3, equal unlabored respirations, skin warm/dry/pink. Vital Signs: 20:23 BP 138 / 98; Pulse 94; Resp 16 S; Temp 98.6(O); Pulse Ox 100% on R/A; Weight 95.25 kg ca1 (R); Height 5 ft. 5 in. (165.10 cm) (R); Pain 7/10; 21:47 BP 135 / 87; Pulse 90; Resp 18 S; Pulse Ox 95% on R/A; jd3 22:39 BP 117 / 67; Pulse 81; Resp 16; Temp 98.3(O); Pulse Ox 100% ; lt1 23:30 BP 115 / 73; Pulse 79; Resp 18; Pulse Ox 98% on R/A; wh 20:23 Body Mass Index 34.95 (95.25 kg, 165.10 cm) ca1 ED Course: 20:10 Patient arrived in ED. jg7 20:18 Awa Powell FNP-C is PHCP. snw 20:18 Danny Meier MD is Attending Physician. snw 20:21 Triage completed. ca1 20:23 Arm band placed on right wrist. ca1 20:28 Eduar Hooper, RN is Primary Nurse. jd3 20:37 Patient has correct armband on for positive identification. Placed in gown. Bed in low jd3 position. Call light in reach. Side rails up X 1. 21:36 Initial lab(s) drawn, by me, sent to lab. Inserted saline lock: 22 gauge in left lt1 antecubital area, using aseptic technique. 23:09 Ryan Washington MD is Referral Physician. snw 23:47 No provider procedures requiring assistance completed. IV discontinued, intact, wh bleeding controlled, No redness/swelling at site. Administered Medications: 21:02 Drug: Simethicone 240 mg Route: PO; jd3 23:50 Follow up: Response: No adverse reaction 21:47 Drug: NS 0.9% 1000 ml Route: IV; Rate: 1 bolus; Site: left antecubital; jd3 23:49 Follow up: Response: No adverse reaction; IV Status: Completed infusion 22:35 Drug: fentaNYL (PF) 25 mcg Route: IVP; Site: left antecubital; 23:49 Follow up: Response: No adverse reaction; Pain is decreased; RASS: Alert and Calm (0) 22:44 Drug: Rocephin 1 grams Route: IV; Rate: calculated rate; Site: left antecubital; 23:49 Follow up: Response: No adverse reaction; IV Status: Completed infusion Outcome: 23:10 Discharge ordered by . snw 23:47 Discharged to home ambulatory, with family. 23:47 Condition: stable 23:47 Discharge instructions given to patient, family, Instructed on discharge instructions, follow up and referral plans. medication usage, POC Demonstrated understanding of instructions, follow-up care, medications, POC Prescriptions given X 1. 23:50 Patient left the ED. Signatures: Awa Powell, COPY COORDINATOR-C COPY COORDINATOR-Csnw Rayna Vera Eduar Hooper RN RN jd3 Alisa Trivedi RN RN ca1 Lisbeth, Teetee 1 Sierra Degrootg7
[2019-05-29 03:41] VITALS: BP 115/73; O2SAT 98
== END 2019-05-28 23:50 | disposition home or self-care (01) ==
LOC: ER 20:06
DX: N39.0 Urinary tract infection, site not specified (principal)
CPT/HCPCS: 96365; 96361; 87088; 85025; 80048; 36415; 81015; 71045; 96375; 99284; J3010; J0696; J7030; 87086

== ENCOUNTER 2022-03-02 09:58 | Emergency (ER) | payer BC ==
--- OUTSIDE RECORDS SUMMARY | 2022-03-02 10:00 | XMS REPORT | Continuity of Care Document ---
:1990 Author Organization [facility] t Address [address] [place] [id number] Care Team Providers Name Role Phone Unavailable Unavailable Unavailable Problems This patient has no known problems. Allergies, Adverse Reactions, Alerts This patient has no known allergies or adverse reactions. Medications This patient has no known medications. Procedures This patient has no known procedures. Results Test Description Test Time Test Comments Results Result Comments Source US PELVIC complete CLINICAL INDICATION: (TRANSABDOMINAL) R10.2 PELVIC AND PERINEAL PAINTECHNIQUE:Real-ti me and doppler transabdominal ultrasound evaluation of the pelvis was performed on the .FINDINGS:Uterus: Measured 9.7 x 7 x 4.4 cm. No discrete uterine mass is seen.Endometrial stripe:8 mm.Right ovary: 2.8 x 2.3 cm appeared unremarkable.Left Ovary: 2.4 x 2.3 cm appeared unremarkable.Adnexa: Unremarkable. Bladder appeared unremarkable.IMPRESSI ON:Essentially unremarkable transabdominal ultrasound of the pelvis.
[2022-03-02] MEDS ORDERED: ONDANSETRON 4 MG/2 ML VIAL ONE (10:58)
[2022-03-02] MEDS ORDERED: NA CHLORIDE 0.9% 1,000 ML ONE (10:58)
[2022-03-02] MEDS ORDERED: MORPHINE 4 MG/ML SYR ONE (10:58)
[2022-03-02 11:01] LABS: Absolute Lymphocytes (CBC) 2.2 K/uL (0.7-4.9); Hematocrit 38.9 % (36.0-45.0); Lymphocytes % 27.7 % (15.3-44.8); MCV 86.5 fL (80-100); MPV 6.8 fL (7.6-11.3); RBC Red Blood Cell Count 4.49 M/uL (3.86-4.86)
[2022-03-02 11:18] LABS: Albumin 3.7 g/dL (3.4-5.0); Bilirubin Total 0.4 mg/dL (0.2-1.0); Protein, Total 7.2 g/dL (6.4-8.2)
[2022-03-02] MEDS ORDERED: FAMOTIDINE 20 MG/2 ML VIAL IV ONE (11:58)
--- NOTE | 2022-03-02 12:25 | RAD REPORT ---
EXAM DESCRIPTION: CTAbdomen Pelvis W Contrast - 03/02/2022 12:07 pm CLINICAL HISTORY: Abdominal pain. abd pain COMPARISON: Abdomen Pelvis Wo Contrast dated 05/21/2019 TECHNIQUE: Biphasic CT imaging of the abdomen and pelvis was performed with 100 ml non-ionic IV cont rast. All CT scans are performed using dose optimization technique as appropriate and may include automated exposure control or mA/KV adjustment according to patient size. FINDINGS: The lung bases are clear. The liver, spleen, pancreas, adrenal glands and kidneys are within normal limits. No bowel obstruction, free air, free fluid or abscess. Appendectomy. No evidence of significant lym phadenopathy. No suspicious bony findings. IMPRESSION: No acute intra-abdominal or pelvic finding.
--- NOTE | 2022-03-02 12:53 | RAD REPORT ---
EXAM DESCRIPTION: US - Abdomen Exam Limited - 03/02/2022 11:49 am CLINICAL HISTORY: ABD PAIN COMPARISON: Abdomen Pelvis W Contrast dated 03/02/2022 FINDINGS: The gallbladder demonstrates no gallstones. No pericholecystic fluid or gallbladder wall t hickening. The common bile duct is normal measuring 3 mm. The liver demonstrates no findings of intrahepatic biliary dilatation. IMPRESSION: Unremarkable examination.
[2022-03-02] MEDS ORDERED: METOCLOPRAMIDE 10 MG/2mL INJ ONE (13:10)
[2022-03-02] MEDS ORDERED: DICYCLOMINE HCL 10 MG CAP ONE (13:10)
--- NOTE | 2022-03-02 13:34 | ER ---
Nurse's Notes [facility] Name: Alejandra Lauraeno Age: 31 yrs Sex: Female : 1990 Arrival Date: 03/02/2022 Time: 10:03 Bed 12 Private MD: Diagnosis: Upper abdominal pain, unspecified Presentation: 03/02 10:27 Chief complaint: Patient states: Upper abd pain, N/V that began on Wednesday. Pt ss reports that she has been seen for this same complaint at [facility] 2 months ago and was told that she has kidney stones and diverticulitis. Coronavirus screen: Client denies travel out of the [place] in the last 14 days. Ebola Screen: Patient denies exposure to infectious person. Patient denies travel to an Ebola-affected area in the 21 days before illness onset. Initial Sepsis Screen: Does the patient meet any 2 criteria? No. Patient's initial sepsis screen is negative. Does the patient have a suspected source of infection? No. Patient's initial sepsis screen is negative. Risk Assessment: Do you want to hurt yourself or someone else? Patient reports no desire to harm self or others. Onset of symptoms was February 25, 2022. 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 - Social history:: Smoking status: Patient denies any tobacco usage or history of. Screenin:55 Abuse screen: Denies threats or abuse. Nutritional screening: No deficits noted. em6 Tuberculosis screening: No symptoms or risk factors identified. Fall Risk Total Cook Fall Scale indicates No Risk (0-24 pts). Assessment: 11:55 General: Appears in no apparent distress. Behavior is cooperative. Pain: Complains of em6 pain in left upper quadrant and right upper quadrant Pain currently is 7 out of 10 on a pain scale. Neuro: Munroe Agitation-Sedation Scale (RASS): 0 - Alert and Calm. Cardiovascular: Patient's skin is warm and dry. Respiratory: Airway is patent Respiratory effort is even, unlabored, Respiratory pattern is regular, symmetrical. GI: Abdomen is flat, Bowel sounds present X 4 quads. Abd is soft and non tender X 4 quads. : No signs and/or symptoms were reported regarding the genitourinary system. EENT: No signs and/or symptoms were reported regarding the EENT system. Derm: No signs and/or symptoms reported regarding the dermatologic system. Musculoskeletal: Circulation, motion, and sensation intact. Range of motion: intact in all extremities. 12:55 Reassessment: No changes from previously documented assessment. Patient and/or family em6 updated on plan of care and expected duration. Pain level reassessed. Patient is alert, oriented x 3, equal unlabored respirations, skin warm/dry/pink. Vital Signs: 10:27 BP 140 / 70; Pulse 95; Resp 19; Temp 98.6(O); Pulse Ox 100% on R/A; Weight 97.52 kg; ss Height 5 ft. 4 in. (162.56 cm); Pain 8/10; 12:00 BP 116 / 84; Pulse 86; Resp 18; Pulse Ox 100% on R/A; em6 13:00 BP 110 / 82; Pulse 84; Resp 18; Pulse Ox 100% on R/A; em6 10:27 Body Mass Index 36.90 (97.52 kg, 162.56 cm) ED Course: 10:03 Patient arrived in ED. am2 10:03 Lis Crenshaw FNP-C [facility] kb 10:03 Daniel Nino DO is Attending Physician. kb 10:29 Triage completed. ss 10:29 Arm band placed on right wrist. ss 11:14 US Abdomen Limited In Process Unspecified. EDMS 11:55 Bed in low position. Call light in reach. Side rails up X2. Pulse ox on. NIBP on. Warm em6 blanket given. 11:55 Inserted saline lock: 20 gauge in right antecubital area, using aseptic technique. em6 Blood collected. by leonides crenshaw. 12:09 CT Abd/Pelvis - IV Contrast Only In Process Unspecified. EDMS 12:48 Natalie Saleh, RN is Primary Nurse. em6 13:47 No provider procedures requiring assistance completed. IV discontinued, intact, em6 bleeding controlled, No redness/swelling at site. Pressure dressing applied. Administered Medications: 11:04 Drug: NS 0.9% 1000 ml Route: IV; Rate: 1 bolus; Site: right antecubital; kb 13:48 Follow up: Response: No adverse reaction; IV Status: Completed infusion; IV Intake: em6 1000ml 11:04 Drug: Zofran (Ondansetron) 4 mg Route: IVP; Site: right antecubital; kb 12:00 Follow up: Response: No adverse reaction em6 11:05 Drug: morphine 4 mg Route: IVP; Infused Over: 4 mins; Site: right antecubital; kb 12:00 Follow up: Response: No adverse reaction; RASS: Alert and Calm (0) em6 12:30 Drug: Pepcid (famotidine) 20 mg Route: IVP; Site: right antecubital; em6 13:00 Follow up: Response: No adverse reaction em6 13:14 Drug: Reglan (metoCLOPramide) 10 mg Route: IVP; Site: right antecubital; em6 13:29 Follow up: Response: No adverse reaction em6 13:14 Drug: Bentyl (dicyclomine) 20 mg Route: PO; em6 13:29 Follow up: Response: No adverse reaction em6 Medication: 13:47 VIS not applicable for this client. em6 Intake: 13:48 IV: 1000ml; Total: 1000ml. em6 Outcome: 13:33 Discharge ordered by MD. kb 13:47 Discharged to home ambulatory. em6 13:47 Condition: stable 13:47 Discharge instructions given to patient, Instructed on discharge instructions, follow up and referral plans. medication usage, Demonstrated understanding of instructions, follow-up care, medications, Prescriptions given X 2. 13:49 Patient left the ED. em6 Signatures: Dispatcher [employer] EDMS Lis Crenshaw FNP-C FNP-Ckb Smirch, Shelby, RN RN Tess Shepherd Erika, RN RN em6 Corrections: (The following items were deleted from the chart) 10:31 10:29 PMHx: Kidney disease; [facility] 13:30 13:29 Response: No adverse reaction; RASS: Alert and Calm (0) em6 em6
--- NOTE | 2022-03-02 13:34 | EDPHYS ---
Physician Documentation [facility] Name: Alejandra Laureano Age: 31 yrs Sex: Female : 1990 Arrival Date: 03/02/2022 Time: 10:03 Bed 12 Private MD: ED Physician Daniel Nino HPI: 03/02 11:09 This 31 yrs old Female presents to ER via Ambulatory with complaints of Abdominal Pain. kb 11:09 The patient presents with abdominal pain in the upper abdomen. Onset: The kb symptoms/episode began/occurred 6 day(s) ago. The symptoms do not radiate. Associated signs and symptoms: Pertinent positives: nausea, vomiting, and diarrhea, Pertinent negatives: fever. The symptoms are described as constant. Modifying factors: The symptoms are alleviated by nothing, the symptoms are aggravated by pressure. Severity of pain: At its worst the pain was severe in the emergency department the pain has improved mildly. The patient has not experienced similar symptoms in the past. The patient has not recently seen a physician. Pt reports upper abd pain that started 6 days ago. States the pain was too bad to drive here until today. Reports nausea and vomiting for the first few days, but hasn't had anything to eat or drink so she hasn't been vomiting since then. Reports diarrhea that entire time. States she has had this intermittently for the last year, but her PCP won't give her a referral to a GI. . 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 - Social history:: Smoking status: Patient denies any tobacco usage or history of. ROS: 11:08 Constitutional: Negative for fever, chills, and weight loss. kb 11:08 Abdomen/GI: Positive for abdominal pain, nausea, vomiting, and diarrhea. 11:08 All other systems are negative. Exam: 11:09 Constitutional: This is a well developed, well nourished patient who is awake, alert, kb and in no acute distress. Head/Face: Normocephalic, atraumatic. ENT: Moist Mucous membranes Cardiovascular: Regular rate and rhythm with a normal S1 and S2. No gallops, murmurs, or rubs. No pulse deficits. Respiratory: Respirations even and unlabored. No increased work of breathing. Talking in full sentences Skin: Warm, dry with normal turgor. Normal color. MS/ Extremity: Pulses equal, no cyanosis. Neurovascular intact. Full, normal range of motion. Neuro: Awake and alert, GCS 15, oriented to person, place, time, and situation. Moves all extremities. Normal gait. Psych: Awake, alert, with orientation to person, place and time. Behavior, mood, and affect are within normal limits. 11:09 Abdomen/GI: Inspection: abdomen appears normal, Bowel sounds: normal, in all quadrants, Palpation: soft, in all quadrants, moderate abdominal tenderness, in the right upper quadrant and left upper quadrant. Vital Signs: 10:27 BP 140 / 70; Pulse 95; Resp 19; Temp 98.6(O); Pulse Ox 100% on R/A; Weight 97.52 kg; ss Height 5 ft. 4 in. (162.56 cm); Pain 8/10; 12:00 BP 116 / 84; Pulse 86; Resp 18; Pulse Ox 100% on R/A; em6 13:00 BP 110 / 82; Pulse 84; Resp 18; Pulse Ox 100% on R/A; em6 10:27 Body Mass Index 36.90 (97.52 kg, 162.56 cm) ss MDM: 10:31 Patient medically screened. kb 11:09 Data reviewed: vital signs, nurses notes. Data interpreted: Pulse oximetry: on room air kb is 100 %. Interpretation: normal. 13:26 Counseling: I had a detailed discussion with the patient and/or guardian regarding: the kb historical points, exam findings, and any diagnostic results supporting the discharge/admit diagnosis, lab results, radiology results, the need for outpatient follow up, a family practitioner, to return to the emergency department if symptoms worsen or persist or if there are any questions or concerns that arise at home. 03/02 10: Order name: CBC with Diff; Complete Time: 11:07 kb 03/02 10: Order name: CMP; Complete Time: 11:19 kb 03/02 10:29 Order name: Lipase; Complete Time: 11:19 kb 03/02 10:29 Order name: CT Abd/Pelvis - IV Contrast Only; Complete Time: 12:36 kb 03/02 11:12 Order name: US Abdomen Limited; Complete Time: 12:58 kb 03/02 10:30 Order name: IV Saline Lock; Complete Time: 11:05 kb 03/02 10:30 Order name: Labs collected and sent; Complete Time: 11:05 kb Administered Medications: 11:04 Drug: NS 0.9% 1000 ml Route: IV; Rate: 1 bolus; Site: right antecubital; kb 13:48 Follow up: Response: No adverse reaction; IV Status: Completed infusion; IV Intake: em6 1000ml 11:04 Drug: Zofran (Ondansetron) 4 mg Route: IVP; Site: right antecubital; kb 12:00 Follow up: Response: No adverse reaction em6 11:05 Drug: morphine 4 mg Route: IVP; Infused Over: 4 mins; Site: right antecubital; kb 12:00 Follow up: Response: No adverse reaction; RASS: Alert and Calm (0) em6 12:30 Drug: Pepcid (famotidine) 20 mg Route: IVP; Site: right antecubital; em6 13:00 Follow up: Response: No adverse reaction em6 13:14 Drug: Reglan (metoCLOPramide) 10 mg Route: IVP; Site: right antecubital; em6 13:29 Follow up: Response: No adverse reaction em6 13:14 Drug: Bentyl (dicyclomine) 20 mg Route: PO; em6 13:29 Follow up: Response: No adverse reaction em6 Disposition: 19:13 Co-signature as Attending Physician, Daniel WALKER was immediately available on-site ms3 in the Emergency Department for consultation in the care of the patient.. Disposition Summary: 03/02/22 13:33 Discharge Ordered Location: Home kb Condition: Stable kb Diagnosis - Upper abdominal pain, unspecified kb Followup: kb - With: Emergency Department - When: As needed - Reason: Worsening of condition Followup: kb - With: Private Physician - When: 2 - 3 days - Reason: Recheck today's complaints, Continuance of care, Re-evaluation by your physician Discharge Instructions: - Discharge Summary Sheet kb - Abdominal Pain, Adult, [id number] kb Forms: - Medication Reconciliation Form kb - Thank You Letter kb - Antibiotic Education kb - Prescription Opioid Use kb Prescriptions: - Reglan 10 mg Oral Tablet - take 1 tablet by ORAL route every 6 hours take 30 minutes before meals and at kb bedtime; 20 tablet; Refills: 0, Product Selection Permitted - dicyclomine 20 mg Oral Tablet - take 1 tablet by ORAL route 4 times per day As needed; 20 tablet; Refills: 0, kb Product Selection Permitted Signatures: Dispatcher [employer] EDDE Lis Crenshaw, MANAGER DIGITAL-C MANAGER DIGITAL-Deborah Potter RN RN Daniel Gilliland DO DO ms3 Ntaalie Saleh RN RN em6 Corrections: (The following items were deleted from the chart) 10:31 10:29 PMHx: Kidney disease; [facility] 11:05 10:30 Urine Test ordered. [facility]
[2022-03-02 13:53] VITALS: TEMP 98.6; O2SAT 100
[2022-03-02 13:55] VITALS: BP 110/82
== END 2022-03-02 13:49 | disposition home or self-care (01) ==
LOC: ER 09:58
DX: R10.10 Upper abdominal pain, unspecified (principal); R11.2 Nausea with vomiting, unspecified; Z87.442 Personal history of urinary calculi; Z98.82 Breast implant status
CPT/HCPCS: 85025; 36415; 83690; 80053; 74177; 76705; Q9967; J2765; J7030; J2405; 96361; 96374; 96375; 99284

== ENCOUNTER 2022-11-27 19:28 | Emergency (ER) | payer BC ==
--- OUTSIDE RECORDS SUMMARY | 2022-11-27 19:31 | XMS REPORT | Continuity of Care Document ---
:1990 Author Organization [facility] t Address [address] [place] [address] Care Team Providers Name Role Phone Unavailable [...] of the pelvis was performed on the [employer].FINDINGS:Uterus: Measured 9.7 x 7 x 4.4 cm. No discrete uterine mass is seen.Endometrial stripe:8 mm.Right ovary: 2.8 x 2.3 cm appeared unremarkable.Left Ovary: 2.4 x 2.3 cm appeared unremarkable.Adnexa: Unremarkable. Bladder appeared unremarkable.IMPRESSI ON:Essentially unremarkable transabdominal ultrasound of the pelvis.
[2022-11-27] MEDS ORDERED: KETOROLAC 30 MG/ML INJ ONE (20:08)
[2022-11-27] MEDS ORDERED: NA CHLORIDE 0.9% 1,000 ML ONE ×2 (20:08→21:38)
[2022-11-27] MEDS ORDERED: ONDANSETRON 4 MG/2 ML VIAL ONE (20:08)
[2022-11-27 21:03] LABS: Specific Gravity > 1.030 (1.005-1.030); Urine Bacteria 20-50 /HPF (<20); Urine Bilirubin NEGATIVE (Negative); Urine Blood 1+ (Negative); Urine Clarity Extremely Turbid (Clear); Urine Color Yellow (Yellow); Urine Glucose NEGATIVE (Negative); Urine Mucus 4+ /HPF (None Seen); Urine Protein 1+ (Negative); Urine Urobilinogen 1+ (Normal); Urine pH 5.5 (5.0-7.0)
[2022-11-27 21:04] LABS: Absolute Lymphocytes (CBC) 2.3 K/uL (0.7-4.9); Hematocrit 40.9 % (36.0-45.0); Lymphocytes % 23.1 % (15.3-44.8); MCV 87.6 fL (80-100); MPV 7.2 fL (7.6-11.3); Platelets 446 thou/uL (152-406); RBC Red Blood Cell Count 4.67 M/uL (3.86-4.86); Specific Gravity 1.031 (1.005-1.030)
--- NOTE | 2022-11-27 21:10 | RAD REPORT ---
EXAM DESCRIPTION: CT - Abdomen Pelvis W Contrast - 11/27/2022 8:59 pm CLINICAL HISTORY: Abdominal pain COMPARISON: 2021 TECHNIQUE: Computed axial tomography of the abdomen pelvis was obtained. 100 cc Isovue-300 was admin istered intravenously. Oral contrast was not requested which limits evaluation of bowel and appendix All CT scans are performed using dose optimization technique as appropriate and may include automated exposure control or mA/KV adjustment according to patient size. FINDINGS: The liver, spleen, pancreas, adrenal and kidneys appear unremarkable. There is no evidence of diverticulitis. Appendectomy. Hysterectomy. 1 centimeter cyst the left aspect of vagina unchanged is benign IMPRESSION: No acute abnormality is displayed.
[2022-11-27 21:12] LABS: Albumin 3.9 g/dL (3.4-5.0); Bilirubin Total 0.4 mg/dL (0.2-1.0); Potassium 3.3 mEq/L (3.5-5.1); Protein, Total 7.9 g/dL (6.4-8.2)
[2022-11-27] MEDS ORDERED: NA CHLORIDE 0.9% 50 ML ONE (21:38)
[2022-11-27] MEDS ORDERED: CEFTRIAXONE 1000 MG/VIAL ONE (21:38)
--- NOTE | 2022-11-28 00:11 | EDPHYS ---
Physician Documentation [facility] Name: Alejandra Laureano Age: 32 yrs Sex: Female : 1990 Arrival Date: 11/27/2022 Time: 19:28 Bed 13 Private MD: ED Physician Amor Cortes HPI: 11/28 00:39 This 32 yrs old Female presents to ER via Ambulatory with complaints of Urinary kb Retention, Pelvic Pain, Low Back Pain, Headache, Fever. 00:39 The patient presents with flank pain, on the right, urinary symptoms, dysuria, urinary kb retention. 00:40 Onset: The symptoms/episode began/occurred yesterday. Modifying factors: The symptoms kb are alleviated by nothing, the symptoms are aggravated by nothing. Associated signs and symptoms: Pertinent positives: dysuria, fever. Severity of symptoms: At their worst the symptoms were moderate, in the emergency department the symptoms are unchanged. The patient has not experienced similar symptoms in the past. The patient has not recently seen a physician. Historical: - Allergies: 11/27 19:45 No Known Allergies; kl - Home Meds: 19:45 Adderall XR Oral [Active]; Buspirone Oral [Active]; Propranolol Oral [Active]; kl - PMHx: 19:45 depressive disorder; Diverticulitis; Endometrosis; Kidney stone; kl - PSHx: 19:45 Appendectomy; breast implants; hysterectomy; kl - Immunization history:: Adult Immunizations unknown. - Social history:: Smoking status: unknown. ROS: 11/28 00:36 : Positive for urinary symptoms, flank pain, burning with urination, difficulty kb urinating. All other systems are negative. 00:37 Respiratory: Negative for shortness of breath, cough, wheezing, and pleuritic chest kb pain. 00:37 Constitutional: Positive for fever, malaise. Exam: 00:37 Constitutional: This is a well developed, well nourished patient who is awake, alert, kb and in no acute distress. Head/Face: Normocephalic, atraumatic. ENT: Moist Mucous membranes Cardiovascular: Regular rate and rhythm with a normal S1 and S2. No gallops, murmurs, or rubs. No pulse deficits. Respiratory: Respirations even and unlabored. No increased work of breathing. Talking in full sentences Skin: Warm, dry with normal turgor. Normal color. MS/ Extremity: Pulses equal, no cyanosis. Neurovascular intact. Full, normal range of motion. Neuro: Awake and alert, GCS 15, oriented to person, place, time, and situation. Moves all extremities. Normal gait. 00:37 Abdomen/GI: Inspection: abdomen appears normal, Bowel sounds: normal, Palpation: soft, in all quadrants, mild abdominal tenderness, in the right lower quadrant and left lower quadrant. 00:37 Back: CVA tenderness, that is moderate, is noted on the right. Vital Signs: 11/27 19:41 BP 133 / 94; Pulse 117; Resp 18; Temp 97.9; Pulse Ox 99% on R/A; Weight 104.33 kg (R); kl Height 5 ft. 6 in. ; Pain 7/10; 20:40 BP 143 / 63; Pulse 87; Resp 17 S; Pulse Ox 100% on R/A; ha1 21:45 BP 124 / 80; Pulse 81; Resp 18; Pulse Ox 100% on R/A; ha1 22:30 BP 138 / 77; Pulse 85; Resp 16 S; Pulse Ox 100% on R/A; ha1 23:30 BP 135 / 81; Pulse 79; Resp 17 S; Pulse Ox 100% on R/A; ha1 19:41 Body Mass Index 37.12 (104.33 kg, 167.64 cm) kl 19:41 Pain Scale: Adult kl MDM: 19:45 Patient medically screened. kb 11/28 00:37 Differential diagnosis: uti, kidney stone, covid, pyelonephritis. Data reviewed: vital kb signs, nurses notes. Counseling: I had a detailed discussion with the patient and/or guardian regarding the historical points, exam findings, and any diagnostic results supporting the discharge/admit diagnosis, lab results, radiology results, the need for outpatient follow up, a family practitioner, to return to the emergency department if symptoms worsen or persist or if there are any questions or concerns that arise at home. 11/27 19:46 Order name: CBC with Diff; Complete Time: 21:15 kb 11/27 19:46 Order name: CMP; Complete Time: 21:15 kb 11/27 19:46 Order name: Lipase; Complete Time: 21:15 kb 11/27 19:46 Order name: Test, Urine; Complete Time: 21:15 kb 11/27 19:46 Order name: Urinalysis w/ reflexes; Complete Time: 21:15 kb 11/27 19:46 Order name: COVID-19 SARS RT PCR; Complete Time: 21:34 kb 11/27 21:08 Order name: Urine Culture EDMS 11/27 19:46 Order name: CT Abd/Pelvis - IV Contrast Only; Complete Time: 21:15 kb 11/27 19:46 Order name: IV Saline Lock; Complete Time: 20:29 kb 11/27 19:46 Order name: Labs collected and sent; Complete Time: 20:29 kb 11/27 19:46 Order name: Bladder Scanner; Complete Time: 21:55 kb 11/27 20:01 Order name: John; Complete Time: 20:29 kb 11/27 20:13 Order name: Misc. Order: RECOLLECT LIGHT GREEN AND LAVENDER; Complete Time: 21:25 rv1 Administered Medications: 11/27 20:15 Drug: NS 0.9% IV 1000 ml Route: IV; Rate: 1 bolus; Site: right forearm; ha1 11/28 00:32 Follow up: Response: No adverse reaction; IV Status: Completed infusion; IV Intake: ha1 1000ml 11/27 20:15 Drug: Ondansetron IVP 4 mg Route: IVP; Site: right forearm; ha1 20:45 Follow up: Response: No adverse reaction; Nausea is decreased ha1 20:18 Drug: TORadol - Ketorolac IVP 15 mg Route: IVP; Site: right forearm; ha1 21:30 Follow up: Response: No adverse reaction; Pain is decreased 1 21:38 Drug: NS 0.9% IV 1000 ml Route: IV; Rate: 1000 ml; Site: right forearm; ha1 11/28 00:32 Follow up: Response: No adverse reaction; IV Status: Completed infusion; IV Intake: ha1 1000ml 11/27 21:38 Drug: Rocephin IV 1 grams Route: IV; Rate: calculated rate; Site: right forearm; ha1 22:00 Follow up: Response: No adverse reaction; IV Status: Completed infusion; IV Intake: [id number] Disposition Summary: 11/28/22 00:10 Discharge Ordered Location: Home kb Condition: Stable kb Diagnosis - UTI/ Urinary tract infection, site not specified kb Followup: kb - With: Emergency Department - When: As needed - Reason: Worsening of condition Followup: kb - With: Private Physician - When: 2 - 3 days - Reason: Recheck today's complaints, Continuance of care, Re-evaluation by your physician Discharge Instructions: - Discharge Summary Sheet kb - Urinary Tract Infection, Adult, [id number] kb Forms: - Medication Reconciliation Form kb - Thank You Letter kb - Antibiotic Education kb - Prescription Opioid Use kb - Patient Portal Instructions kb - Leadership Thank You Letter kb Prescriptions: - Augmentin 875-125 mg Oral Tablet - take 1 tablet by ORAL route every 12 hours for 10 days; 20 tablet; Refills: 0, kb Product Selection Permitted Signatures: Dispatcher [employer] EDMS Lis Crenshaw, ISA-C ISA-Tamanna Isaac, RN RN Abril Juarez RN RN ha1 Haylee Shaw1 Corrections: (The following items were deleted from the chart) 11/28 00:37 00:36 Constitutional: Negative for fever, chills, and weight loss, kb kb
--- NOTE | 2022-11-28 00:11 | ER ---
Nurse's Notes [facility] Jeff Name: Alejandra Laureano Age: 32 yrs Sex: Female : 1990 Arrival Date: 11/27/2022 Time: 19:28 Bed 13 Private MD: Diagnosis: UTI/ Urinary tract infection, site not specified Presentation: 11/27 19:41 Chief complaint: Patient states: diff urinating treated for UTI reports fever off and kl on decrease appetite and nausea. Coronavirus screen: Vaccine status: Patient reports being unvaccinated. Ebola Screen: Patient negative for fever greater than or equal to 101.5 degrees Fahrenheit, and additional compatible Ebola Virus Disease symptoms. Initial Sepsis Screen: Does the patient meet any 2 criteria? HR > 90 bpm. Does the patient have a suspected source of infection? Yes: Dysuria/Frequency/Urgency/UTI. Risk Assessment: Do you want to hurt yourself or someone else? Patient reports no desire to harm self or others. 19:41 Method Of Arrival: Ambulatory 19:41 Acuity: BERT 3 kl 11/28 00:31 Onset of symptoms was November 28, 2022. ha1 Triage Assessment: 11/27 19:46 General: Appears uncomfortable, Behavior is calm, cooperative. Pain: Complains of pain kl in suprapubic area Pain currently is 8 out of 10 on a pain scale. : Reports inability to void, since tthis am pain with urination. 19:47 Headache History: The patient has had previous headaches and this one is similar to ha1 previous episodes. 20:00 Pain: Also complains of no other associated symptoms. ha1 Historical: - Allergies: 19:45 No Known Allergies; kl - Home Meds: 19:45 Adderall XR Oral [Active]; Buspirone Oral [Active]; Propranolol Oral [Active]; kl - PMHx: 19:45 depressive disorder; Diverticulitis; Endometrosis; Kidney stone; kl - PSHx: 19:45 Appendectomy; breast implants; hysterectomy; kl - Immunization history:: Adult Immunizations unknown. - Social history:: Smoking status: unknown. Screenin:47 [facility] ED Fall Risk Assessment (Adult) History of falling in the last 3 months, ha1 including since admission No falls in past 3 months (0 pts) Confusion or Disorientation No (0 pts) Intoxicated or Sedated No (0 pts) Impaired Gait No (0 pts) Mobility Assist Device Used No (0 pt) Altered Elimination No (0 pt) Score/Fall Risk Level 0 - 2 = Low Risk Oriented to surroundings, Maintained a safe environment, Educated pt \\T\\ family on fall prevention, incl call for assistance when getting out of bed, Hourly rounding (assess needs \\T\\ fall precautionary measures) done. Abuse screen: Denies threats or abuse. Denies injuries from another. Nutritional screening: No deficits noted. Tuberculosis screening: No symptoms or risk factors identified. Assessment: 19:47 General: Appears uncomfortable, Behavior is calm, cooperative. Pain: Complains of pain ha1 in suprapubic area Pain does not radiate. Pain currently is 10 out of 10 on a pain scale. Quality of pain is described as burning, pressure. Neuro: Level of Consciousness is awake, alert, obeys commands, Oriented to person, place, time, situation. Cardiovascular: Patient's skin is warm and dry. Respiratory: Airway is patent Respiratory effort is even, unlabored, Respiratory pattern is regular, symmetrical. GI: Abdomen is round non-distended, Bowel sounds present X 4 quads. Reports nausea. : Urine is cloudy, Reports inability to void, since this morning having a UTI and was getting antibiotics. Derm: Skin is pink, warm \\T\\ dry. Musculoskeletal: Circulation, motion, and sensation intact. Range of motion: intact in all extremities. 20:40 Reassessment: Patient and/or family updated on plan of care and expected duration. Pain ha1 level reassessed. Patient is alert, oriented x 3, equal unlabored respirations, skin warm/dry/pink. 21:40 Reassessment: Patient and/or family updated on plan of care and expected duration. Pain ha1 level reassessed. Patient is alert, oriented x 3, equal unlabored respirations, skin warm/dry/pink. 22:30 Reassessment: Patient and/or family updated on plan of care and expected duration. Pain ha1 level reassessed. Patient is alert, oriented x 3, equal unlabored respirations, skin warm/dry/pink. pain 5/10. 23:30 Reassessment: Patient and/or family updated on plan of care and expected duration. Pain ha1 level reassessed. Patient is alert, oriented x 3, equal unlabored respirations, skin warm/dry/pink. pt. reports able to urinate without difficulty. Pt. states" I think I was just dihydrated oh and I forgot to collect the urine you requested.". Vital Signs: 19:41 BP 133 / 94; Pulse 117; Resp 18; Temp 97.9; Pulse Ox 99% on R/A; Weight 104.33 kg (R); kl Height 5 ft. 6 in. ; Pain 7/10; 20:40 BP 143 / 63; Pulse 87; Resp 17 S; Pulse Ox 100% on R/A; ha1 21:45 BP 124 / 80; Pulse 81; Resp 18; Pulse Ox 100% on R/A; ha1 22:30 BP 138 / 77; Pulse 85; Resp 16 S; Pulse Ox 100% on R/A; ha1 23:30 BP 135 / 81; Pulse 79; Resp 17 S; Pulse Ox 100% on R/A; ha1 19:41 Body Mass Index 37.12 (104.33 kg, 167.64 cm) kl 19:41 Pain Scale: Adult kl ED Course: 19:37 Patient arrived in ED. [id number] 19:38 Lis Crenshaw[facility] kb 19:38 Amor Cortes MD is Attending Physician. kb 19:45 Triage completed. kl 19:47 Arm band placed on right wrist. ha1 19:47 Patient has correct armband on for positive identification. Placed in gown. Bed in low ha1 position. Call light in reach. Side rails up X 1. 19:55 CT Abd/Pelvis - IV Contrast Only Sent. ha1 20:10 John cath inserted, using sterile technique, 16 Fr., by la, balloon inflated, to ha1 gravity drainage, urine specimen collected. 20:15 No provider procedures requiring assistance completed. Inserted saline lock: 20 gauge ha1 in right forearm, using aseptic technique. 20:28 Abril Delgado, ALLY is Primary Nurse. ha1 20:29 CBC with Diff Sent. ha1 20:29 CMP Sent. ha1 20:29 Lipase Sent. ha1 21:01 CT Abd/Pelvis - IV Contrast Only In Process Unspecified. EDMS 21:20 Removed John catheter upon patients request. Notified nurse practitioner. Den ha1 States " remove it if she wants it out.". 11/28 00:31 IV discontinued, intact, bleeding controlled, No redness/swelling at site. Pressure ha1 dressing applied. 00:31 Provided Education on: follow ups. ha1 Administered Medications: 11/27 20:15 Drug: NS 0.9% IV 1000 ml Route: IV; Rate: 1 bolus; Site: right forearm; ha1 11/28 00:32 Follow up: Response: No adverse reaction; IV Status: Completed infusion; IV Intake: ha1 1000ml 11/27 20:15 Drug: Ondansetron IVP 4 mg Route: IVP; Site: right forearm; ha1 20:45 Follow up: Response: No adverse reaction; Nausea is decreased ha1 20:18 Drug: TORadol - Ketorolac IVP 15 mg Route: IVP; Site: right forearm; ha1 21:30 Follow up: Response: No adverse reaction; Pain is decreased ha1 21:38 Drug: NS 0.9% IV 1000 ml Route: IV; Rate: 1000 ml; Site: right forearm; ha1 11/28 00:32 Follow up: Response: No adverse reaction; IV Status: Completed infusion; IV Intake: ha1 1000ml 11/27 21:38 Drug: Rocephin IV 1 grams Route: IV; Rate: calculated rate; Site: right forearm; ha1 22:00 Follow up: Response: No adverse reaction; IV Status: Completed infusion; IV Intake: [id number] Medication: 11/28 00:30 VIS not applicable for this client. ha1 Intake: 11/27 22:00 IV: 50ml; Total: 50ml. ha1 11/28 00:32 IV: 1000ml; Total: 1050ml. ha1 00:32 IV: 1000ml; Total: 2050ml. ha1 Outcome: 00:10 Discharge ordered by MD. aguirre 00:30 Discharged to home ambulatory. ha1 00:30 Condition: stable 00:30 Discharge instructions given to patient, Instructed on discharge instructions, follow up and referral plans. medication usage, Demonstrated understanding of instructions, follow-up care, medications, Prescriptions given X 1. 00:33 Patient left the ED. ha1 Signatures: Dispatcher [facility] Lis rCenshaw, HEMALATHA MOSS-Tamanna Isaac RN RN kl Jeffries, Jennifer [email or web address] Abril Delgado, RN RN ha1 Corrections: (The following items were deleted from the chart) 00:30 11/27 21:45 BP 124 / 80; Pulse 81bpm; Resp 81bpm; Pulse Ox 100% RA; ha1 ha1
[2022-11-28 01:27] VITALS: TEMP 97.9
[2022-11-28 01:33] VITALS: O2SAT 100
[2022-11-28 01:34] VITALS: BP 124/80
== END 2022-11-28 00:33 | disposition home or self-care (01) ==
LOC: ER 19:28
DX: N39.0 Urinary tract infection, site not specified (principal); Z20.822 Contact with and (suspected) exposure to COVID-19; Z87.442 Personal history of urinary calculi; Z98.82 Breast implant status
CPT/HCPCS: 96365; 96361; 87088; 85025; 81001; 87086; 36415; 81025; 82565; 83690; 80053; 87635; 74177; 51702; 96375; 99285; Q9967; J2405; J7030 ×2; J0696; 87077; 87186